=== PATIENT | female | born 1950 | race Caucasian/White ===

== ENCOUNTER 2021-07-31 16:16 | Emergency (ER) | payer OTHER, SELFPAY ==
[2021-07-31 16:37] VITALS: BP 133/80; PULSE 71; RESP 18; TEMP 36.8; O2SAT 100
--- NOTE | 2021-07-31 16:45 | ED.URI ---
HPI - URI/Sore Throat General Chief Complaint: Upper Respiratory Infection Stated Complaint: chest congestion,hoarse Time Seen by Provider: 07/31/21 16:47 Source: patient and RN notes reviewed Mode of arrival: ambulatory Limitations: no limitations History of Present Illness HPI Narrative: 71-year-old female presents concern for runny nose, postnasal drip, sore throat, cough, wheezing, shortness of breath. Reports symptoms started last week. She reports she been taking several [id number] medications without relief. She denies fever, bodies, chills, sweats. Denies current shortness of breath. Denies chest pain. MD elicited complaint: cough, rhinorrhea and nasal congestion Related Data Home Medications Medication Instructions Recorded Confirmed aspirin [Adult Aspirin EC Low 81 mg PO DAILY 07/31/21 07/31/21 Strength] atorvastatin [Lipitor] 40 mg PO DAILY 07/31/21 07/31/21 cyclosporine [Restasis] 1 drp DIRECTED 07/31/21 07/31/21 Allergies Allergy/AdvReac Type Severity Reaction Status Date / Time Penicillins Allergy Swelling Verified 07/31/21 16:46 Sulfa (Sulfonamide Allergy Unknown Verified 07/31/21 16:46 Antibiotics) Review of Systems Review of Systems: CONSTITUTIONAL: Reports malaise. Denies chills, sweats, or fever. EYES: Denies visual changes, redness, or discharge. ENT: Reports rhinorrhea, congestion, sinus pain, otalgia and sore throat. Reports hoarse voice CARDIOVASCULAR: Denies chest pain, palpitations, or edema. RESPIRATORY: Reports cough. Denies dyspnea. GASTROINTESTINAL: Denies abdominal pain, nausea, vomiting, diarrhea SKIN: Denies rash or itching. MUSCULOSKELETAL: Denies myalgia. NEUROLOGIC: Denies headache. All systems reviewed & are unremarkable except as noted in HPI and below PMFSH Comments At time of signature, agree with nursing past medical, surgical, social and family history. There is no relevant family history pertinent to the presenting complaint Exam Narrative: GENERAL: Well-appearing, well-nourished, and in no acute distress. HEAD: Normocephalic EYES: PERRLA, conjunctivae clear ENT: Nares clear, turbinates edematous and erythematous, sinus tenderness. Mucous membranes moist. TM pearly gardner with dull light reflex bilaterally; no tragal tenderness. Oropharynx not erythematous without lesions. Tonsils not enlarged and without exudate, no drooling, no trismus, uvula midline. Mild hoarse voice NECK: Supple. No lymphadenopathy CHEST: Clear to auscultation, breath sounds equal. No wheezing, rhonchi, rales, or stridor. No respiratory distress, speaks in full sentences. HEART: Regular rate and rhythm. No murmur heard. SKIN: Warm, dry, no rash. NEURO: Alert and oriented x3. PSYCH: Normal mood and affect Course Course Emergency Course: Patient is aware of diagnosis, understands and agrees to treatment plan. Anticipatory guidance given. Patient agrees to follow-up as directed and is aware of reasons to seek care at the emergency department. Portions of this record may have been created with voice recognition software Level of Care: Express Care Visit Vital Signs Vital signs: Reviewed. MDM - URI/Sore Throat MDM Narrative Medical decision making narrative: Differential diagnosis considered: [place] virus, strep pharyngitis, allergic rhinitis, upper respiratory tract infection, sinusitis, rhinosinusitis, nasopharyngitis. viral pharyngitis, otitis media, otitis externa, pneumonia, bronchitis, viral cough syndrome, viral syndrome, and influenza. Exam findings show no acute concerns or changes; patient is non-toxic appearing and is in no distress. Patient is appropriate for outpatient treatment and follow-up. Lab Data Attestation: I reviewed the patient's lab results. Critical Care Time Critical Care Time Critical Care Time: No Discharge Plan Discharge Clinical Impression: Sinobronchitis Patient Disposition: Home, Self-Care Condition: Stable Instructions: Antibiotic F
== END 2021-07-31 17:00 | disposition home or self-care (01) ==
PROVIDERS: Emergency Provider Nurse Practitioner
DX: J32.9 Chronic sinusitis, unspecified (principal); J40 Bronchitis, not specified as acute or chronic; E78.00 Pure hypercholesterolemia, unspecified
CPT/HCPCS: 99203; G0463

== ENCOUNTER 2022-06-03 01:16 | Day surgery (SDC) | payer OTHER, SELFPAY ==
[2022-06-02 13:29] VITALS: BMI 31.5
[2022-06-03] VITALS (8 sets, daily range): BP systolic 94–139; BP diastolic 56–76; PULSE 50–57; RESP 1–19; TEMP 36.6; O2SAT 96–100; BMI 31.8
[2022-06-03 07:56] LABS: Basophils Absolute Auto 0.1 K/mm3 (0.0-0.1); Basophils Percent Auto 1.1 % (0.2-1.2); Eosinophils Absolute Auto 0.3 K/mm3 (0-0.3); Eosinophils Percent Auto 6.9 % (0-4.4); Hematocrit 43.7 % (37.0-47.0); Hemoglobin 14.2 g/dL (12.0-15.0); Immature Granulocyte Absolute 0.01 K/mm3 (0.00-0.031); Immature Granulocyte Percent A 0.2 % (0-0.5); Lymphocytes Absolute Auto 1.36 K/mm3 (0.9-3.2); Lymphocytes Percent Auto 29.1 % (18.3-44.2); Mean Corpuscular HGB Conc 32.5 g/dl (32-36); Mean Corpuscular Hemoglobin 31.3 pg (26-34); Mean Corpuscular Volume 96.3 fl (80-100); Mean Platelet Volume 12.1 fl (7.4-10.4); Monocytes Absolute Auto 0.5 K/mm3 (0.1-0.6); Monocytes Percent Auto 11.3 % (2.6-8.5); Neutrophils Absolute Auto 2.4 K/mm3 (1.3-6.7); Neutrophils Percent Auto 51.4 % (45.5-73.1); Platelet Count Result 141 k/mm3 (150-375); Red Blood Count 4.54 M/mm3 (4.2-5.4); Red Cell Distribution Width 13.3 % (11.5-14.5); White Blood Count 4.7 K/mm3 (4.5-10.0)
[2022-06-03 08:07] LABS: Anion Gap 6 mmol/L (8-16); Blood Urea Nitrogen 13 mg/dL (7-17); Calcium 8.9 mg/dL (8.4-10.2); Carbon Dioxide 29 mmol/L (22-30); Chloride 105 mmol/L (98-107); Estimated CRCL calculation 60 ml/min; Estimated Glomerular Filt Rate > 60; Glucose 108 mg/dL (65-110); Potassium 3.8 mmol/L (3.4-5.0); Sodium 140 mmol/L (137-145)
[2022-06-03] MEDS: CLOPIDOGREL BISULFATE 300 MG TABLET 600 MG PO (08:33)
--- NOTE | 2022-06-03 09:24 | PM.IMHP ---
H&P: HPI History of Present Illness Date/Time: 06/03/22 09:24 Chief Complaint: Chest pain Narrative: Patient is a 72-year-old female with a history of CAD s/p proximal LAD stent in 2018 at [place] who is referred for [facility] for anginal symptoms. Review of Systems Review of Systems: 12-point ROS obtained. Negative, unless stated in HPI. [facility] Social History Social History Smoking status: Never smoker Second hand tobacco smoke exposure: No Alcohol intake: never Substance use: never Substance use type: does not use Living arrangements: alone Spiritual care concerns: No Comments PMHx: CAD s/p PCI PSHx: PCI to the proximal LAD FHx: Reviewed, non-contributory SHx: Never smoked Meds Home Medications and Allergies Home Medications Medication Instructions Recorded Confirmed Type aspirin 81 mg tablet,delayed 81 mg PO DAILY 07/31/21 06/02/22 History release atorvastatin 40 mg tablet (Lipitor) 40 mg PO DAILY 07/31/21 06/02/22 History codeine 10 mg-guaifenesin 100 mg/5 5 ml PO Q6H PRN cough #120 mL 07/31/21 06/02/22 Rx mL oral liquid (Virtussin AC) calcium carbonate 600 mg-vitamin 1 tablet PO DAILY 06/02/22 06/02/22 History D3 5 mcg (200 unit) tablet denosumab 60 mg/mL subcutaneous 60 mg subcut [id number] 06/02/22 06/02/22 History syringe fluticasone propionate 50 1 spray intranasal DAILY 06/02/22 06/02/22 History mcg/actuation nasal spray,suspension (Flonase Allergy Relief) meclizine 25 mg tablet 25 mg PO TID 06/02/22 06/02/22 History nitroglycerin 0.4 mg sublingual 0.4 mg sublingual Q10-15M PRN 06/02/22 06/02/22 History tablet (Nitrostat) Angina Allergies Allergy/AdvReac Type Severity Reaction Status Date / Time Penicillins Allergy Swelling Verified 06/03/22 07:37 Sulfa (Sulfonamide Allergy Unknown Verified 06/03/22 07:37 Antibiotics) Vital Signs Vital Signs - 24 hr 06/03/22 07:43 Temperature 36.6 C Pulse Rate 57 L Respiratory Rate 1 L Blood Pressure 139/66 Pulse Oximetry 99 Oxygen Delivery Room Air Exam Const: General: comfortable and no acute distress HENMT: Mouth: Yes moist mucous membranes Eyes: General: appearance normal, both eyes and all related structures Sclera: sclerae normal Neck: Neck: supple Resp: Effort & Inspection: normal respiratory effort Auscultation: clear to auscultation bilaterally Cardio: Rate: regular rate Rhythm: regular rhythm Heart sounds: no murmurs GI: GI Palp: Yes Soft to palpation and No Tenderness to palpation present (GI) Skin: General skin exam: normal color Neuro: Speech: normal speech Extrem: General: normal to inspection Psych: Mental Status: mental status grossly normal Affect: normal affect H&P: Results Labs Labs: Short CBC 06/03/22 Range/Units 07:51 WBC 4.7 (4.5-10.0) K/mm3 Hgb 14.2 (12.0-15.0) g/dL Hct 43.7 (37.0-47.0) % Plt Count 141 L (150-375) k/mm3 [facility] 06/03/22 07:51 Sodium 140 Potassium 3.8 Chloride 105 Carbon Dioxide 29 BUN 13 Creatinine 0.80 Glucose 108 Calcium 8.9 Assessment and Plan Assessment and plan (1) Coronary artery disease: Code(s): I25.10 - Atherosclerotic heart disease of [place] coronary artery without angina pectoris Status: Acute Plan Proceed with [facility] today.
--- NOTE | 2022-06-03 09:28 | WPDMODSED ---
Moderate Sedation Note-Pt Data Patient Data Diagnosis: CAD Present Complaint: Chest pain Procedure to be performed/Plan: Coronary angiography, LHC +/- PCI Allergies Allergy/AdvReac Type Severity Reaction Status Date / Time Penicillins Allergy Swelling Verified 06/03/22 07:37 Sulfa (Sulfonamide Allergy Unknown Verified 06/03/22 07:37 Antibiotics) Home Medications Medication Instructions Recorded Confirmed Type aspirin 81 mg tablet,delayed 81 mg PO DAILY 07/31/21 06/02/22 History release atorvastatin 40 mg tablet (Lipitor) 40 mg PO DAILY 07/31/21 06/02/22 History codeine 10 mg-guaifenesin 100 mg/5 5 ml PO Q6H PRN cough #120 mL 07/31/21 06/02/22 Rx mL oral liquid (Virtussin AC) calcium carbonate 600 mg-vitamin 1 tablet PO DAILY 06/02/22 06/02/22 History D3 5 mcg (200 unit) tablet denosumab 60 mg/mL subcutaneous 60 mg subcut [id number] 06/02/22 06/02/22 History syringe fluticasone propionate 50 1 spray intranasal DAILY 06/02/22 06/02/22 History mcg/actuation nasal spray,suspension (Flonase Allergy Relief) meclizine 25 mg tablet 25 mg PO TID 06/02/22 06/02/22 History nitroglycerin 0.4 mg sublingual 0.4 mg sublingual Q10-15M PRN 06/02/22 06/02/22 History tablet (Nitrostat) Angina Current Medications: Active Medications Sodium Chloride (Normal Saline Iv) 500 mls @ 100 mls/hr IV CONT .Q5H ALFONSO Sedation/Anesthesia: No previous sedation/anesthesia problems (including family history). [facility] Social History Social History Smoking status: Never smoker Second hand tobacco smoke exposure: No Alcohol intake: never Substance use: never Substance use type: does not use Living arrangements: alone Spiritual care concerns: No Mod Sed Physical Exam Physical Exam Pre Procedural Exam: Normal: Appearance, Lungs, Heart Rate, Heart Rhythm, Neuro Exam, Abdomen, Extremities and Skin Hours since solid foods: 12 Hours since liquid intake: 8 Mallampati Classification: class III Internal Medicine - PN: Obj Da Vital Signs Vital Signs: Vital Signs - 24 hr 06/03/22 07:43 Temperature 36.6 C Pulse Rate 57 L Respiratory Rate 1 L Blood Pressure 139/66 Pulse Oximetry 99 Oxygen Delivery Room Air Meds/Results Medications: Active Medications Generic Name Dose Route Start Last Admin Trade Name Genevieve PRN Reason Stop Dose Admin Sodium Chloride 500 mls @ 100 mls/hr 06/03/22 07:00 Normal Saline Iv IV CONT .Q5H ALFONSO Labs 06/03/22 07:51 06/03/22 07:51 Labs: Laboratory Results - last 24 hr 06/03/22 06/03/22 07:51 07:51 WBC 4.7 RBC 4.54 Hgb 14.2 Hct 43.7 MCV 96.3 MCH 31.3 MCHC 32.5 RDW 13.3 Plt Count 141 L MPV 12.1 H Immature Gran % (Auto) 0.2 Neut % (Auto) 51.4 Lymph % (Auto) 29.1 Richardson % (Auto) 11.3 H Eos % (Auto) 6.9 H Baso % (Auto) 1.1 Lymph # (Auto) 1.36 Richardson # (Auto) 0.5 Eos # (Auto) 0.3 Baso # (Auto) 0.1 Abs Immat Gran (auto) 0.01 Absolute Neuts (auto) 2.4 Absolute Nucleated RBC 0.0 Nucleated RBC % 0.0 Sodium 140 Potassium 3.8 Chloride 105 Carbon Dioxide 29 Anion Gap 6 L BUN 13 Creatinine 0.80 Estim Creat Clear Calc 60 Estimated GFR > 60 Glucose 108 Calcium 8.9 ASA Classification/Sedation ASA Classification/Sedation ASA Class: III Emergent: No Risks: Risks, benefits and alternatives explained and patient/family accepted plan for sedation. Patient re-evaluated immediately prior to sedation.
--- NOTE | 2022-06-03 09:31 | WPDCARDPROC ---
Cardiac Cath Procedure Note Date of procedure:: 06/03/22 Performing physician:: CATHETERIZATION LABORATORY REPORT Procedure Date: 06/03/2022 Continuous Linter Drier Operator: Kumar Hollis M.D., [facility]? Referring Physician: Dr. Bhavin Baca M.D. ? Anesthesia: Versed and Fentanyl were ordered and given in my presence at 09:01, procedure ended at 09:20. Supervision of nurse monitored moderate sedation with Versed and Fentanyl was provided for 19 minutes. Total of Versed 2mg and Fentanyl 50mcg were administered by the Promotion Producer RN Dayami Sanchez. Pre-op Diagnosis: CAD s/p LAD PCI Post-op Diagnosis: 1. Non-obstructive coronary artery disease with patent proximal LAD stent with very mild ISR, angiographically unchanged compared to last cath from 2019 2. Right dominant coronary artery system 3. Left ventricular end-diastolic pressure of 15mmHg Procedure(s): Left heart catheterization with coronary angiography Access Site: Right radial artery Brief History and Clinical Indications: Patient is a 72-year-old female with a history of CAD s/p proximal LAD stent in 2018 who is referred for ischemic evaluation for chest pain. All risks, benefits and alternatives to left heart catheterization with or without percutaneous coronary intervention was discussed at length with the patient. Risk of complications including but not limited to bleeding, infection, arrhythmia, stroke, worsening kidney function, blood loss, groin hematoma, limb loss, emergency coronary artery bypass grafting, and even were discussed with the patient and all questions were answered. The patient understood and wished to proceed. Time out called, patient name, date of , medical record number, allergies, procedure performed, identify Continuous Linter Drier Operator, patient and staff member concurred with accurate data, procedure carried on. Findings: LEFT HEART CATHETERIZATION FINDINGS: 1. Left main: The left main coronary artery is widely patent without any significant obstructive disease. 2. Left anterior descending: Patent stent seen in the proximal LAD with very mild 20% focal in-stent restenosis. Rest of the LAD and the diagonal branches have mild luminal irregularities without any significant obstructive angiographic disease. 3. Left circumflex: The left circumflex artery and the main marginal branches have mild luminal irregularities without any significant obstructive angiographic disease. 4. Right coronary artery: The RCA has mild luminal irregularities without any significant obstructive angiographic disease. The RCA is the dominant vessel. 5. Left ventricle: A. End-diastolic pressure 15 mmHg. B. LV gram deferred. C. No significant gradient across aortic valve on catheter pullback. Description of Procedure: Informed consent signed and placed in the chart. Patient transferred to cardiac cath rn room. Prepped and draped in usual sterile fashion. 2% lidocaine injected subcutaneously in right wrist area. 22-gauge venipuncture catheter used to access the right radial artery with the Seldinger technique. 6-FR slender sheath placed in right radial artery. Nitroglycerine and Verapamil were given intraarterial through the sheath. Versacore wire advanced under fluoroscopy 5F Tig 4 diagnostic catheter engaged Left Main Coronary Artery. 5F Tig 4 diagnostic catheter engaged Right Coronary Artery Multiple orthogonal angiogram obtained and reviewed 5F Tig 4 diagnostic catheter crossed aortic valve to obtain LVEDP, LV angiogram deferred. Hemostasis was achieved by application of TR band. ? Assessment: 1. Non-obstructive coronary artery disease with patent proximal LAD stent with very mild ISR, angiographically unchanged compared to last cath from 2019 2. Right dominant coronary artery system 3. Left ventricular end-diastolic pressure of 15mmHg Post Operative Condition: Stable No significant blood loss Disposition: Home Plan: The patient will be monitored in the recovery area. Discharge h
== END 2022-06-03 12:31 | disposition home or self-care (01) ==
PROVIDERS: PCP Internal Medicine; Visit Provider Internal Medicine
PROC: 4A023N7 Measurement of Cardiac Sampling and Pressure, Left Heart, Percutaneous Approach (ICD-10-PCS; CPT 93452; principal; 2022-06-03 08:30)
DX: I25.110 Atherosclerotic heart disease of native coronary artery with unstable angina pectoris (principal); T82.855A Stenosis of coronary artery stent, initial encounter; I25.111 Atherosclerotic heart disease of native coronary artery with angina pectoris with documented spasm; R07.9 Chest pain, unspecified; Y83.8 Other surgical procedures as the cause of abnormal reaction of the patient, or of later complication, without mention of misadventure at the time of the procedure; I10 Essential (primary) hypertension; G47.33 Obstructive sleep apnea (adult) (pediatric); E78.5 Hyperlipidemia, unspecified; Z79.82 Long term (current) use of aspirin
CPT/HCPCS: 36415; 80048; 85025; 93458; A9270; C1769; C1887; C1894; J1644; J2250; J3010; J7040

== ENCOUNTER 2024-02-27 11:17 | Emergency (ER) | payer OTHER, SELFPAY ==
--- NOTE | 2024-02-27 11:24 | ED.FEMALEGU ---
HPI - Female Genitourinary General Chief complaint: Urogenital-Female Stated complaint: Urinary Problem Time Seen by Provider: 02/27/24 11:35 Source: patient, RN notes reviewed and old records reviewed Mode of arrival: ambulatory Limitations: no limitations History of Present Illness HPI Narrative: 73-year-old female presents to the [facility] with complaints frequency, urgency, burning urination for 2 days. Noticed that she had blood her toilet paper when she wiped this morning. Patient reports that when she urinates she has suprapubic discomfort. Denies fever Onset (ago): day(s) (2) Related Data Home Medications Medication Instructions Recorded Confirmed aspirin 81 mg tablet,delayed 81 mg PO DAILY 07/31/21 02/27/24 release atorvastatin 40 mg tablet (Lipitor) 40 mg PO DAILY 07/31/21 02/27/24 calcium 600 mg (as 1 tablet PO DAILY 06/02/22 02/27/24 carbonate)-vitamin D3 5 mcg (200 unit) tablet denosumab 60 mg/mL subcutaneous 60 mg subcut [id number] 06/02/22 02/27/24 syringe fluticasone propionate 50 1 spray intranasal DAILY 06/02/22 02/27/24 mcg/actuation nasal spray,suspension (Flonase Allergy Relief) nitroglycerin 0.4 mg sublingual 0.4 mg sublingual Q10-15M PRN 06/02/22 02/27/24 tablet (Nitrostat) Angina Allergies Allergy/AdvReac Type Severity Reaction Status Date / Time Penicillins Allergy Intermediate Swelling Verified 02/27/24 11:34 Sulfa (Sulfonamide Allergy Intermediate Unknown Verified 02/27/24 11:34 Antibiotics) nitrofurantoin AdvReac Intermediate Nausea and Verified 02/27/24 12:05 Vomiting Review of Systems Review of Systems: All systems reviewed & are unremarkable except as noted in HPI and below Constitutional: Constitutional: Reports no additional constitutional complaints Eyes: Eyes: Reports no additional eye complaints ENT: Reports system reviewed and no additional complaints, except as documented Cardiovascular: Cardiovascular: Reports no additional cardiovascular complaints, Denies chest pain and Denies dyspnea Respiratory: Respiratory: Reports no additional respiratory complaints, Denies chest congestion, Denies cough and Denies dyspnea Gastrointestinal: Gastrointestinal: Reports no additional gastrointestinal complaints, Denies abdominal pain, Denies nausea and Denies vomiting Genitourinary: Genitourinary: Reports as per HPI Musculoskeletal: Musculoskeletal: Reports no additional musculoskeletal complaints Integumentary/Breasts: Skin/Breast: Reports system reviewed and no additional complaints, except as docu Neurologic: Reports system reviewed and no additional complaints, except as documented Psychiatric: Psychiatric: Reports no additional psychiatric complaints Allergic/Immunologic: Allergic/Immunologic: Reports no additional allergic/immunologic complaints PMFSH Social History Social History Smoking status: Never smoker Second hand tobacco smoke exposure: No Alcohol intake: never Substance use: never Substance use type: does not use Living arrangements: alone Spiritual care concerns: No Comments At the time of my signature, I reviewed and agree with the nursing past medical, surgical, social, and family history. There is no relevant family history pertinent to the patient complaint. Exam Const: General: cooperative, healthy appearing, comfortable, no acute distress, well developed, alert and well nourished Nutritional Appearance: well nourished Orientation/consciousness: patient oriented x3 Limitations: no limitations HENMT: Head: normal to inspection Ears: hearing grossly normal bilaterally and external ears normal Face/Nose/Sinus: Normal external nose present, normal facial exam and face symmetric Face and sinus: normal facial exam and face symmetric Eyes: General: appearance normal, both eyes and all related structures Alignment and Position: alignment normal Periorbita
[2024-02-27 11:28] VITALS: BP 114/70; PULSE 59; RESP 16; TEMP 36.5; O2SAT 100
[2024-02-27 11:55] LABS: EDUAAPPEAR Cloudy; EDUABILI Negative (Negative); EDUABLOOD 2+ (Negative); EDUACOLOR1 Yellow; EDUAGLUCOSE Negative (Negative); EDUAKETONE Negative (Negative); EDUALEUKO 1+ (Negative); EDUANITRATE Negative (Negative); EDUAPH 5.5; EDUAPROTEIN Negative (Negative); EDUAUROBILI 0.2
== END 2024-02-27 12:01 | disposition home or self-care (01) ==
PROVIDERS: Emergency Provider Nurse Practitioner
DX: N39.0 Urinary tract infection, site not specified (principal); E78.00 Pure hypercholesterolemia, unspecified; I10 Essential (primary) hypertension; K21.9 Gastro-esophageal reflux disease without esophagitis; M19.90 Unspecified osteoarthritis, unspecified site; Z95.5 Presence of coronary angioplasty implant and graft
CPT/HCPCS: 81003; 87086; 99213; G0463